=== PATIENT | male | born 1950 | race Caucasian/White ===

== ENCOUNTER 2022-08-10 19:59 | Emergency (ER) | payer MEDICARE, OTHER ==
[~2022-08-10] VITALS: Ht 182.9 cm; Wt 85.3 kg
--- NOTE | 2022-08-10 20:10 | NUR ---
After being triaged, patient was placed back in the waiting room due to no beds available in the ER.
[2022-08-10] MEDS ORDERED: LEVE1000 PO (20:19)
[2022-08-10] MEDS ORDERED: QUET200T PO (20:19)
[2022-08-10] MEDS ORDERED: HYDR25CA PO (20:21)
[2022-08-10 21:47] LABS: HEMATOCRIT 46.8 % (36.7-47.1); MEAN CORPUSCULAR HEMOGLOBIN 28.9 uug (23.8-33.4); MEAN CORPUSCULAR VOLUME 88.3 fL (73.0-96.2); PLATELET COUNT (AUTO) 493 K/uL (152-348)
[2022-08-10 22:46] LABS: ALANINE AMINOTRANSFERASE 82 U/L (16-63); ALKALINE PHOSPHATASE 87 U/L (50-136); ASPARTATE AMINOTRANSFERASE 44 U/L (15-37); BILIRUBIN,DIRECT 0.2 mg/dL (0.0-0.2); BILIRUBIN,TOTAL 0.6 mg/dL (0.2-1.0); CARBON DIOXIDE 22 mmol/L (21-32); CHLORIDE 101 mmol/L (98-107); CREATININE 1.2 mg/dL (0.6-1.3); GLUCOSE 101 mg/dL (74-106); LIPASE 161 U/L (73-393); POTASSIUM 4.6 mmol/L (3.5-5.1); TOTAL PROTEIN, SERUM 7.5 g/dL (6.4-8.2); UREA NITROGEN, BLOOD 13 mg/dL (7-18)
--- NOTE | 2022-08-11 | NUR ---
EKG was just done at this time due to no gurny available in the ER.
--- NOTE | 2022-08-11 00:01 | NUR ---
Patient placed in hallway due to no room available.
--- NOTE | 2022-08-11 00:12 | NUR ---
Dr Braun into eval patient.
[2022-08-11] MEDS ORDERED: METOCLOPRAMIDE HCL 10 MG/2 ML VIAL IV ONE (01:15)
[2022-08-11] MEDS ORDERED: FAMOTIDINE. 20 MG/2 ML VIAL IV ONE ×2 (01:15→01:18)
[2022-08-11] MEDS ORDERED: KETOROLAC TROMETHAMINE 30 MG INJ IVP ONE (01:15)
[2022-08-11] MEDS ORDERED: IV NS 1000 ML 1,000 ML IV ONE (01:15)
[2022-08-11] MEDS ORDERED: METOCLOPRAMIDE HCL 10 MG/2 ML VIAL ONE (01:17)
[2022-08-11] MEDS ORDERED: KETOROLAC TROMETHAMINE 30 MG INJ ONE (01:17)
[2022-08-11] MEDS ORDERED: MORPHINE SULFATE 2 MG/1 ML DISP.SYRIN IV ONE (05:00)
[2022-08-11] MEDS ORDERED: MORPHINE SULFATE 2 MG/1 ML DISP.SYRIN ONE (05:10)
[2022-08-11] MEDS ORDERED: HYDR-4209 PO (06:37)
[2022-08-11] MEDS ORDERED: ONDA4TAB11 PO (06:38)
--- NOTE | 2022-08-11 10:00 | NUR ---
Pt was d/c in stable condition. ACI given by primary nurse Isela.
== END 2022-08-11 10:30 | disposition home or self-care (01) ==
LOC: ER 20:03
DX: R10.9 Unspecified abdominal pain (principal); R51.9 Headache, unspecified; R11.10 Vomiting, unspecified; R19.7 Diarrhea, unspecified; R74.01 Elevation of levels of liver transaminase levels; I45.10 Unspecified right bundle-branch block; D75.839 Thrombocytosis, unspecified; Z20.822 Contact with and (suspected) exposure to COVID-19
CPT/HCPCS: 74176; 80076; 80048; 83690; 85025; 87040 ×2; 84484; 93005; 83605; 99285; 96374; 96375; 96361; 87426; 87400; J3490; J1885; J2765; J2270; J7040